=== PATIENT | female | born 1995 | race Caucasian/White ===

== ENCOUNTER 2016-12-06 15:30 | Inpatient (IN) ==
--- NOTE | 2016-12-06 17:19 | PROVIDER DOCUMENTATION ---
HPI-Musculoskeletal Pain/Inj - GENERAL Chief Complaint: Rib Pain Stated Complaint: SENT BY [facility]/POSS COLLAPSED LUNG Time Seen by Provider: 12/06/16 17:14 Source: patient - HX OF PRESENT ILLNESS-MUSKULOSKELTAL Nature of Presenting Problem: 21 y/o F c/o L axillary pain, SOB x 1 day. Pt states was seen by [facility] today and given Abx for bronchitis and sent home. States that she had been home for several hours when he called her back and asked her to be evaluated by the ED for PTX in L lung. States that she was at work yesterday when she took a break to get something out of her car when she started to have pain in L axillary region. Denies any trauma. States pain 10/10, radiates to posterior L ribs. Reports that she couldn't breathe. Review of Systems - Adult - REVIEW OF SYSTEMS - ADULT Constitutional: reports: no symptoms reported. denies: chills, fever Eyes: reports: no symptoms reported. denies: blurred vision, double vision Ears, Nose, Mouth & Throat: reports: see HPI. denies: ear pain, nose pain Cardiovascular: reports: see HPI, chest pain. denies: palpitations Respiratory: reports: see HPI, shortness of breath. denies: cough, wheezing Gastrointestinal: reports: no symptoms reported. denies: abdominal pain, nausea , vomiting Genitourinary: reports: no symptoms reported. denies: dysuria, frequency Musculoskeletal: reports: see HPI, joint pain. denies: back pain, neck pain Integumentary: reports: no symptoms reported. denies: nail changes, rash Neurological: reports: no symptoms reported. denies: numbness, paresthesia Psychiatric: reports: no symptoms reported Endocrine: reports: no symptoms reported. denies: cold intolerance, heat intolerance Hematologic/Lymphatic: reports: no symptoms reported. denies: easy bruising, prolonged bleeding Allergic/Immunologic: reports: no symptoms reported All Other Systems: Reviewed and Negative Past History - Adult - PAST MEDICAL HISTORY-ADULT Review of Records: reports: Nursing Assessment Review, Medications Reviewed Major Childhood Illnesses: reports: denies history Cardiovascular: reports: denies history Respiratory: reports: denies history Gastrointestinal: reports: denies history Obstetrical/Gynecological: reports: ovarian cysts Genitourinary: reports: denies history Musculoskeletal: reports: denies history Neurological: reports: denies history Psychiatric: reports: other (ADD) Endocrine/Immune: reports: anemia Other Conditions: reports: denies history - PRIOR SURGERIES/PROCEDURES Surgical/Procedure History: reports: other (wisdom teeth) - PRIOR HOSPITALIZATIONS Prior Hospitalizations: reports: none - IMMUNIZATION STATUS Childhood Immunizations: See Nurse Assessment Flu Vaccine: See Nurse Assessment - FAMILY HISTORY Family History: reviewed, not pertinent - SOCIAL HISTORY Smoking: cigarettes, less than 1 pack/day Provider spent 3-5 mins advising pt. on dangers of tobacco.: Discussed manners to quit use, and f/u contacts for add'l counseling. Alcohol Use Frequency: never Physical Exam-Injury Related - Physical Exam-Injury Related Initial Vital Signs Reviewed: Yes General Appearance: alert, mild distress Eyes: pink conjunctivae Head, Ears, Nose, Mouth & Throat: normocephalic/atraumatic, moist mucous membranes Neck: supple, normal inspection Respiratory: lungs clear, decreased breath sounds (L sided), rib tenderness (L axillary). negative: chest non-tender, crackles, rales, rhonchi, stridor Cardiovascular: regular rate, rhythm. negative: bradycardia, tachycardia Back Exam: normal inspection Extremity: normal gait Integumentary: normal color, warm/dry, blanching Neurologic: negative: aphasia Psych/Mental Status: normal mood/affect, normal thought content, normal thought process, oriented x 3 Progress - PLAN OF CARE/RESULTS Progress/Plan/Lab Results: Laboratory Tests 12/06/16 12/06/16 12/06/16 19:24 19:24 19:24 WBC 7.32 RBC 3.90 L Hgb 11.8 L Hct 35.4 L MCV 90.8 MCH 30.3 MCHC 33.3 RDW Std Deviation 14.1 Plt Count 351 MPV 8.5 Immature Gran % (Auto) 0.3 Neut % (Auto) 59.2 Lymph % (Auto) 31.3 Morgan % (Auto) 8.2 Eos % (Auto) 0.7 Baso % (Auto) 0.3 Immature Gran # (Auto) 0.02 Neut # (Auto) 4.34 Lymph # (Auto) 2.29 Morgan # (Auto) 0.60 H Eos # (Auto) 0.05 Baso # (Auto) 0.02 PT 10.2 INR 1.00 PTT (Actin FS) 26.5 Sodium 139 Potassium 3.7 Chloride 101 Carbon Dioxide 25 Anion Gap 13 BUN 9 Creatinine 0.6 Estimated GFR/1.73 m2 > 60 BUN/Creatinine Ratio 15 Glucose 60 L Calculated Osmolality 274 Calcium 9.4 Total Bilirubin 0.22 AST 12 ALT 7 L Alkaline Phosphatase 34 Total Protein 7.1 Albumin 3.9 Globulin 3.2 Albumin/Globulin Ratio 1.2 Urine Source Urine Color Urine Turbidity Urine pH Ur Specific [place] Urine Protein Ur Glucose (Stick) Ur Ketones (Stick) Urine Blood Urine Nitrite Urine Bilirubin Urobilinogen Dipstick Urine Leukocytes Urine WBC (Auto) Urine RBC (Auto) U Epithel Cells (Auto) Urine Bacteria (Auto) 12/06/16 19:24 WBC RBC Hgb Hct MCV MCH MCHC RDW Std Deviation Plt Count MPV Immature Gran % (Auto) Neut % (Auto) Lymph % (Auto) Morgan % (Auto) Eos % (Auto) Baso % (Auto) Immature Gran # (Auto) Neut # (Auto) Lymph # (Auto) Morgan # (Auto) Eos # (Auto) Baso # (Auto) PT INR PTT (Actin FS) Sodium Potassium Chloride Carbon Dioxide Anion Gap BUN Creatinine Estimated GFR/1.73 m2 BUN/Creatinine Ratio Glucose Calculated Osmolality Calcium Total Bilirubin AST ALT Alkaline Phosphatase Total Protein Albumin Globulin Albumin/Globulin Ratio Urine Source CLEAN CATCH Urine Color YELLOW Urine Turbidity HAZY Urine pH 7.0 Ur Specific [place] 1.010 Urine Protein NEGATIVE Ur Glucose (Stick) NEGATIVE Ur Ketones (Stick) NEGATIVE Urine Blood NEGATIVE Urine Nitrite NEGATIVE Urine Bilirubin NEGATIVE Urobilinogen Dipstick NORMAL Urine Leukocytes SMALL A Urine WBC (Auto) <10 Urine RBC (Auto) <10 U Epithel Cells (Auto) >10 A Urine Bacteria (Auto) 2+ Orders Category Date Time Status ED: Urine Bedside ORDERED Care 12/06/16 15:56 Active Oxygen Therapy- ED Nursing DIRECTED Care 12/06/16 21:13 Active Saline Loc NOW Care 12/06/16 19:14 Active NPO Diet 12/06/16 19:14 Active CHEST-2 VIEWS [RAD] Stat Exams 12/06/16 15:[address] THORAX W/O CONTRAST [CT] Stat Exams 12/06/16 19:15 Taken CBC WITH ELECTRONIC DIFF [HEME] Stat Lab 12/06/16 19:24 Completed COMPREHENSIVE METABOLIC PANEL [CHEM] Stat Lab 12/06/16 19:24 Completed PROTIME WITH INR [COAG] Stat Lab 12/06/16 19:24 Completed PTT [COAG] Stat Lab 12/06/16 19:24 Completed URINALYSIS W/POSS RFLX CULT [URINALYSIS] Stat Lab 12/06/16 19:24 Completed URINE CULTURE [RM] Routine Lab 12/06/16 19:54 Received Vital Signs Temp Pulse Resp BP Pulse Ox 12/06/16 20:40 98.5 F 75 20 119/76 100 12/06/16 15:53 98.6 F 90 20 125/78 96 No Known Allergies Allergy (Verified 12/06/16 18:04) Hydrocodone/APAP 10 mg/325 mg [[place]-10] 1 each PO Q4H PRN PRN #10 tablet Amphetamine Salts [Adderall] 10 mg PO PRN PRN 05/22/15 Lisdexamfetamine Dimesylate [Vyvanse] 40 mg PO DAILY 05/22/15 Dietary Diet NPO Start Sat Dec 06 1913 I&O 12/05/16 12/06/16 12/07/16 06:59 06:59 07:59 Output Total 50 Balance -50 Laboratory 12/06/16 12/06/16 12/06/16 19:24 19:24 19:24 WBC RBC Hgb Hct MCV MCH MCHC RDW Std Deviation Plt Count MPV Immature Gran % (Auto) Neut % (Auto) Lymph % (Auto) Morgan % (Auto) Eos % (Auto) Baso % (Auto) Immature Gran # (Auto) Neut # (Auto) Lymph # (Auto) Morgan # (Auto) Eos # (Auto) Baso # (Auto) PT 10.2 INR 1.00 PTT (Actin FS) 26.5 Sodium 139 Potassium 3.7 Chloride 101 Carbon Dioxide 25 Anion Gap 13 BUN 9 Creatinine 0.6 Estimated GFR/1.73 m2 > 60 BUN/Creatinine Ratio 15 Glucose 60 L Calculated Osmolality 274 Calcium 9.4 Total Bilirubin 0.22 AST 12 ALT 7 L Alkaline Phosphatase 34 Total Protein 7.1 Albumin 3.9 Globulin 3.2 Albumin/Globulin Ratio 1.2 Urine Source CLEAN CATCH Urine Color YELLOW Urine Turbidity HAZY Urine pH 7.0 Ur Specific [place] 1.010 Urine Protein NEGATIVE Ur Glucose (Stick) NEGATIVE Ur Ketones (Stick) NEGATIVE Urine Blood NEGATIVE Urine Nitrite NEGATIVE Urine Bilirubin NEGATIVE Urobilinogen Dipstick NORMAL Urine Leukocytes SMALL A Urine WBC (Auto) <10 Urine RBC (Auto) <10 U Epithel Cells (Auto) >10 A Urine Bacteria (Auto) 2+ 12/06/16 19:24 WBC 7.32 RBC 3.90 L Hgb 11.8 L Hct 35.4 L MCV 90.8 MCH 30.3 MCHC 33.3 RDW Std Deviation 14.1 Plt Count 351 MPV 8.5 Immature Gran % (Auto) 0.3 Neut % (Auto) 59.2 Lymph % (Auto) 31.3 Morgan % (Auto) 8.2 Eos % (Auto) 0.7 Baso % (Auto) 0.3 Immature Gran # (Auto) 0.02 Neut # (Auto) 4.34 Lymph # (Auto) 2.29 Morgan # (Auto) 0.60 H Eos # (Auto) 0.05 Baso # (Auto) 0.02 PT INR PTT (Actin FS) Sodium Potassium Chloride Carbon Dioxide Anion Gap BUN Creatinine Estimated GFR/1.73 m2 BUN/Creatinine Ratio Glucose Calculated Osmolality Calcium Total Bilirubin AST ALT Alkaline Phosphatase Total Protein Albumin Globulin Albumin/Globulin Ratio Urine Source Urine Color Urine Turbidity Urine pH Ur Specific [place] Urine Protein Ur Glucose (Stick) Ur Ketones (Stick) Urine Blood Urine Nitrite Urine Bilirubin Urobilinogen Dipstick Urine Leukocytes Urine WBC (Auto) Urine RBC (Auto) U Epithel Cells (Auto) Urine Bacteria (Auto) Discussed Xray results with Dr. Paez; states pt needs CT and call surgeon with results. - XRAY 1 XRAY Study: Chest XRAY Interpretation: L simple pneumothorax, approx. 10-15% - CT/MRI 1 CT Study: Thorax Impression: See EMR Report (About 20% pneumothorax on left; mild emphysema at right upper lobe -per Dr. Ball) - CONSULTS/PCP/HOSPITALIST Notification #1 *Consult/PCP/Hospitalist*: Dr. Iqbal Time Discussed: 20:40 Reason/Comments: L PTX about 20%, per CT scan Consult Disposition: Will see in ED, Admit (after evaluation, recommended admission to CIC or ICU if not available. NRB mask. Admit to Dr. Iqbal) Departure - Departure Time of Disposition Order: 21:13 DIAGNOSIS: Pneumothorax on left Emphysema of lung Qualifiers: Emphysema type: unspecified Qualified Code(s): J43.9 - Emphysema, unspecified Disposition: ADMITTED INPATIENT 09 Certified Medical Emergency: Emergent Condition: Stable Referrals: ANJU MASON [Primary Care Provider] - Attestation - Physician/ RAIN Attestation Patient care was provided by Advanced Practice Provider:: Yes Advanced Practice Provider:: Jennifer Platt Advanced Practice Provider documentation review:: The Mid-level provider documentation, treatment plan and medical decision making was reviewed by the physician who agrees with all treatment and medical decision making by the MLP.
[2016-12-06 19:39] LABS: MANUAL DIFF NEEDED? NO; URINE MICRO REVIEW NEEDED? NO; URINE SOURCE CLEAN CATCH
--- NOTE | 2016-12-06 19:44 | Diag Imaging Result Document ---
PROCEDURE NAME: CHEST-2 VIEWS - 12/06/2016 FRONTAL AND LATERAL CHEST, 2 VIEWS: COMPARISON: Compared to 06/03/2015. There is a left-sided pneumothorax measuring 3.4 cm superiorly in the midline. The right lung is well expanded and clear. There are no infiltrates. No pleural effusions. The heart is not enlarged. The vessels are not distended. IMPRESSION: Small to moderate sized left-sided pneumothorax. A preliminary report was called and given to Dr. Paez in the Emergency Room at 7:22 p.m.
[2016-12-06 19:50] LABS: BASO% 0.3 % (0.0-0.8); EOS# 0.05 X1000 (0.0-0.7); EOS% 0.7 % (0.0-10.0); HEMATOCRIT 35.4 % (37.0-47.0); HEMOGLOBIN 11.8 g/dL (12.0-16.0); IMM GRAN# 0.02 X1000 (0.0-0.04); IMM GRAN% 0.3 % (0.0-0.5); LYMPH# 2.29 X1000 (1.2-3.4); LYMPH% 31.3 % (20.5-51.1); MCH 30.3 PG (27-31); MCHC 33.3 g/dL (33-37); MCV 90.8 FL (81-99); MONO% 8.2 % (1.7-9.3); MPV 8.5 FL (7.4-10.4); NEUT% 59.2 % (42.2-75.2); PLT 351 X1000 (130-400)
[2016-12-06 19:51] LABS: BILIRUBIN URINE NEGATIVE (NEGATIVE); BLOOD URINE NEGATIVE (NEGATIVE); COLOR YELLOW; GLUCOSE URINE NEGATIVE (NEGATIVE); LEUKOCYTES URINE SMALL (NEGATIVE); NITRITE URINE NEGATIVE (NEGATIVE); PROTEIN URINE NEGATIVE (NEGATIVE); TURBIDITY URINE HAZY (CLEAR); UROBILINOGEN URINE NORMAL (NORMAL)
[2016-12-06 19:53] LABS: UR EPITHELIAL CELLS >10 /HPF (<10); URINE BACTERIA 2+ /HPF; URINE CULTURE NEEDED? YES; URINE RBC <10 /HPF (<10); URINE WBC <10 /HPF (<10)
[2016-12-06 19:57] LABS: AGAP 13; ALBUMIN 3.9 g/dL (3.5-5.0); ALKALINE PHOSPHATASE 34 U/L (32-104); BUN 9 mg/dL (8-22); CALCIUM 9.4 mg/dL (8.8-10.2); CHLORIDE 101 mmol/L (98-107); COSMO 274; GOT 12 U/L (10-30); GPT 7 U/L (10-36); POTASSIUM 3.7 mmol/L (3.5-5.1); SODIUM 139 mmol/L (136-145); TCO2 25 mmol/L (25-35); TOTAL BILIRUBIN 0.22 mg/dL (0.20-1.00); TOTAL PROTEIN 7.1 g/dL (6.3-8.3)
[2016-12-06 20:01] LABS: PROTIME 10.2 Seconds (9.2-11.7); PTT 26.5 Seconds (22.0-36.0)
[2016-12-06] MEDS: ZOFRAN IV PRN (21:50)
[2016-12-06] MEDS: NS 1,000 ML IV SCH (21:50)
--- NOTE | 2016-12-06 21:55 | Diag Imaging Result Document ---
PROCEDURE NAME: CT THORAX W/O CONTRAST - 12/06/2016 CT CHEST WITHOUT CONTRAST: TECHNIQUE: Dose reduction protocol. FINDINGS: There is a small left-sided pneumothorax. This measures 2.3 cm anteriorly in the midline. No right-sided pneumothorax. Minimal emphysematous changes. No consolidation. No bronchiectasis. No pleural effusions. No cardiomegaly. No thoracic aortic aneurysm. No enlarged mediastinal or hilar lymph nodes. IMPRESSION: 1. Small left pneumothorax. 2. Minimal early emphysematous changes. A preliminary report was given at 7:57 p.m. Results of the pneumothorax from the plain film were given to Dr. Paez at 7:22 p.m. MTDD
[2016-12-06] MEDS ORDERED: ADDERALL PO PRN (22:45)
[2016-12-06] MEDS: NORCO-7.5 PO PRN (23:08)
--- NOTE | 2016-12-07 03:37 | HISTORY AND PHYSICAL ---
DATE OF ADMISSION: 12/06/2016 HISTORY OF PRESENT ILLNESS: This is a 21-year-old female who, starting yesterday when reaching in her car, developed some pleuritic-type left chest pain. She went to urgent care earlier today, was diagnosed to have bronchitis but on the formal read of her chest x-ray, there were concerns of some pneumothorax and she was referred to the emergency department where a CT scan was obtained that confirmed pneumothorax. CT scan was also obtained that showed a left-sided pneumothorax. She has been hemodynamically stable. No shortness of breath and her pain has resolved for the most part at this point. PAST MEDICAL HISTORY: She has some depression, ADHD, and a history of abnormal vaginal bleeding. SURGICAL HISTORY: [place] teeth. SOCIAL HISTORY: Half pack-a-day smoker. She does smoke marijuana regularly. Denies alcohol or other illicit drugs. FAMILY HISTORY: Extensive for lung cancer, emphysema, coronary disease, and many others. REVIEW OF SYSTEMS: Ten point negative other than what is mentioned in her HPI. PHYSICAL EXAMINATION: Vital Signs: Temperature is 98.5, pulse 75, blood pressure 119/76, oxygen saturation 100% on room air. General: She is alert, in no acute distress. HEENT: There is no scleral icterus. Cardiovascular: Normal rate, regular rhythm. Pulmonary: There is equal chest rise. There is no increased work of breathing. Normal tidal volumes. There is no subcutaneous air noted along her chest or neck. Abdomen: Soft, nontender, nondistended. Integument: Warm, dry. LABS: Reviewed. White count is normal at 7, hematocrit is 35. INR is 1. Renal function, LFTs, and electrolyte panel are normal. Urinalysis does show some small leukocytes but no nitrites. A CT scan shows approximately a 20% left pneumothorax. There is no mediastinal shift. There are some apical blebs that are small, noted bilaterally. I do not see any subcutaneous air. ASSESSMENT/PLAN: A 21-year-old female with a spontaneous pneumothorax. This is her first episode. She is asymptomatic currently. It is right on the cusp of needing a chest tube this evening. However, she remains completely asymptomatic. We will admit her to a monitored bed, either intensive care unit or a step-down unit. Placed her on continuous nonrebreather supplemental oxygen to help facilitate resolution. Follow serial chest x-rays. I did discuss with the patient that if this is not improved or resolving by in the morning, she will need likely to go to the operating room; if not, have a bedside chest tube placed. As this is the first episode, we will treat initially with chest tube management. I did encourage her to stop all forms of smoking. She understands the role that this plays in spontaneous pneumothorax. We will have a low threshold to place a bedside chest tube if her clinical condition deteriorates or should she become worsening symptomatic. We will continue to follow closely.
[2016-12-07] MEDS: NS 1,000 ML IV SCH ×4 (06:03→20:17)
--- NOTE | 2016-12-07 07:51 | Diag Imaging Result Document ---
PROCEDURE NAME: CHEST-PORTABLE - 12/07/2016 PORTABLE CHEST: COMPARISON: Compared to 12/06/2016. FINDINGS: There is a small left apical pneumothorax. This is unchanged from the prior exam. The right lung remains well expanded. There are no infiltrates. No cardiomegaly. No vascular distension. No pleural effusions identified. IMPRESSION: Stable small left pneumothorax.
[2016-12-07] MEDS ORDERED: VYVANSE PO SCH (09:00)
[2016-12-07] MEDS ORDERED: KEFZOL 1 GM/D5W 50 ML ONE (09:23)
[2016-12-07] MEDS ORDERED: XYLOCAINE 1% ONE (09:23)
[2016-12-07] MEDS ORDERED: MARCAINE 0.25% PF/EPI 1:200,000 ONE (09:23)
[2016-12-07] MEDS ORDERED: DEMEROL ONE (10:12)
[2016-12-07] MEDS: DEMEROL ONE ×2 (10:14→10:19)
[2016-12-07] MEDS ORDERED: DIPRIVAN 1% ONE (10:14)
[2016-12-07] MEDS ORDERED: PHENERGAN ONE (10:23)
--- NOTE | 2016-12-07 10:59 | Diag Imaging Result Document ---
PROCEDURE NAME: CHEST-PORTABLE - 12/07/2016 PORTABLE CHEST: COMPARISON: Compared to study performed earlier. FINDINGS: Interval placement of a left-sided chest tube. The tip overlies the left lung apex. Interval decrease in the size of the left pneumothorax. The right lung remains well expanded and clear. IMPRESSION: Interval placement of a left-sided chest tube with decrease in the size of the left pneumothorax
[2016-12-07] MEDS: NORCO-7.5 PO PRN ×2 (12:11→20:28)
--- NOTE | 2016-12-07 13:53 | PROGRESS NOTE ---
DATE: 12/07/2016 SUBJECTIVE: No events overnight. No pain. No shortness of breath. OBJECTIVE: Vital signs: She is afebrile. No tachycardia. General: She is alert, in no acute distress. Non-rebreather mask is on. Cardiovascular: Normal rate. Regular rhythm. Pulmonary: No increased work of breathing. No subcu air. Abdomen: Soft, nontender. Integument: Warm and dry. DIAGNOSTIC STUDIES: I have reviewed her chest x-ray this morning and shows a persistent left- sided pneumothorax with no improvement. ASSESSMENT AND PLAN: This is a 21-year-old female with a spontaneous left pneumothorax. No improvement with nonoperative management. She is asymptomatic for the most part, but I have had a discussion with her and I do not think this pneumothorax will resolve without thoracostomy tube. Risks, benefits, and alternatives were discussed and she consents to the procedure. We will plan to go today to the operating room for video-assisted left chest tube placement and will manage this per the usual protocol postop.
--- NOTE | 2016-12-07 14:09 | OPERATIVE NOTE ---
PROCEDURE DATE : 12/07/2016 PREOPERATIVE DIAGNOSIS: Left spontaneous pneumothorax. POSTOPERATIVE DIAGNOSIS: Left spontaneous pneumothorax. PROCEDURES PERFORMED: 1. Thoracoscopy. 2. Placement of a 24-Tristanian left chest tube. COMPLICATIONS: None. ESTIMATED BLOOD LOSS: 2 mL. SPECIMENS: None. ANESTHESIA: General. OPERATIVE INDICATION: This 21-year-old female presented to the emergency department with chest pain and was found to have a spontaneous pneumothorax. We monitored this overnight on nonrebreather oxygen, did not improve and persisted this morning. She was asymptomatic. Chest tube was placed, indicated to facilitate resolution of pneumothorax. OPERATIVE FINDINGS: There were some atelectatic changes of the lung. There was no evidence of air leak. No other abnormalities within the chest. No other physiology. DESCRIPTION OF PROCEDURE: The risks, benefits and alternatives were discussed with the patient. She consented for the procedure. She was taken in the operating room and placed in the supine position. General anesthesia was induced. Surgical site was confirmed. Her left chest was prepped. She was placed in modified right lateral decubitus on a beanbag with just a slight bump here. After the chest was prepped and preincisional antibiotics were administered, she was draped in the usual fashion. We counted the ribs. The patient is very thin, and this was easy to do. At approximately the 7th intercostal space, we made a transverse incision. I used electrocautery and blunt dissection to carry this down to the level of the rib. We entered the chest cavity above the level of the diaphragm. We placed a trocar in an open Abrahan technique and inspected the left hemithorax with a camera with the above findings. After this, we selected a 24-Tristanian straight chest tube and advanced this apically in slight anterior orientation. We placed the scope alongside this and confirmed that this did course into the expected location. We secured it with 0 silk sutures, placed it to suction with the Pleur-evac device and applied a sterile dressing. She tolerated the procedure well. There was no identified complication. She was awakened, transferred to the PACU in good condition where we obtained a chest x-ray. I spoke to the family.
[2016-12-08] MEDS: NS 1,000 ML IV SCH (03:50)
[2016-12-08] MEDS ORDERED: ROBINUL ONE (07:19)
[2016-12-08] MEDS ORDERED: NEOSTIGMINE ONE (07:19)
[2016-12-08] MEDS ORDERED: ZOFRAN ONE (07:19)
[2016-12-08] MEDS ORDERED: XYLOCAINE-MPF 2% ONE (07:20)
[2016-12-08] MEDS ORDERED: ZEMURON ONE (07:20)
[2016-12-08] MEDS ORDERED: LR 1,000 ML ONE (07:20)
[2016-12-08] MEDS ORDERED: QUELICIN (DOSE) ONE (07:20)
[2016-12-08] MEDS ORDERED: DECADRON ONE (07:20)
[2016-12-08] MEDS ORDERED: EXTENSION SET 32 IN 4522 ONE (07:20)
[2016-12-08] MEDS ORDERED: ANESTHESIA PB SET 88 IN 5742 ONE (07:20)
--- NOTE | 2016-12-08 08:08 | Diag Imaging Result Document ---
PROCEDURE NAME: CHEST-PORTABLE - 12/08/2016 PORTABLE CHEST X-RAY, 12/08/2016: COMPARISON: 12/07/2016. FINDINGS: Stable left chest tube. There is no pneumothorax. The lungs are clear and the heart size is normal. IMPRESSION: No acute disease or complication.
[2016-12-08] MEDS: NON-FORMULARY MED PO SCH (08:52)
[2016-12-08] MEDS: NORCO-7.5 PO PRN ×3 (09:03→22:02)
--- NOTE | 2016-12-08 12:00 | PROGRESS NOTE ---
DATE: 12/08/2016 SUBJECTIVE: A little bit of discomfort at the tube site but otherwise no new respiratory symptoms. OBJECTIVE: Vital signs: She is afebrile. No tachycardia. Oxygen saturation has been fine on room air. Chest: No subcu air. No air leak in her chest tube. Only a scant amount of fluid out. LABS: No new labs this morning. Chest x-ray shows complete resolution of her pneumothorax. ASSESSMENT AND PLAN: This is a 21-year-old female status post left chest tube placement for spontaneous pneumothorax. The pneumothorax has resolved. There is no air leak. We plan to place the tube to water seal today, repeat a chest x-ray, and possibly remove the tube tomorrow.
--- NOTE | 2016-12-08 16:04 | Diag Imaging Result Document ---
PROCEDURE NAME: CHEST-PORTABLE - 12/08/2016 PORTABLE CHEST X-RAY: TIME: 11:36 hours. COMPARISON: 0600 hours. FINDINGS: There is a stable left apical chest tube. No pneumothorax. The lungs are clear and the heart size is normal. IMPRESSION: No acute disease or complication.
[2016-12-08] MEDS ORDERED: AYR NASAL SPRAY NAS ONE (18:06)
[2016-12-08] MEDS: ZOFRAN IV PRN (22:02)
[2016-12-09] MEDS: NORCO-7.5 PO PRN ×2 (06:43→13:14)
--- NOTE | 2016-12-09 08:15 | Diag Imaging Result Document ---
PROCEDURE NAME: CHEST-PORTABLE - 12/09/2016 SINGLE FRONTAL RADIOGRAPH OF THE CHEST: COMPARISON: 12/08/2016. FINDINGS: The left chest tube is in stable position with the tip projecting near the apex of the left lung. No definite residual pneumothorax can be identified on this plain radiograph. The lungs are clear otherwise. There is no pleural fluid collection identified. Cardiac silhouette is stable. IMPRESSION: Stable left chest tube with no definite residual pneumothorax by plain radiograph.
[2016-12-09] MEDS: NON-FORMULARY MED PO SCH (09:10)
--- NOTE | 2016-12-09 11:12 | PROGRESS NOTE ---
DATE: 12/09/2016 SUBJECTIVE: Feels well. Some discomfort with her tube, slight, but no shortness of breath. OBJECTIVE: Vital signs: Stable. Oxygen saturation 100% on room air. General: She is alert, in no acute distress. There is no air leak in her chest tube. There is minimal output. However, chest x-ray this morning showed no residual pneumothorax. ASSESSMENT AND PLAN: A 21-year-old female status post left chest tube placement for spontaneous pneumothorax. This has resolved. There is no air leak. She tolerated water seal yesterday. Removed the tube today and placed an occlusive dressing and she tolerated this well. I will get a chest x-ray at noon. If this looks okay, I will plan for her to go home. Will then plan for her to follow with me in the next week to ensure no symptoms and resolution.
[2016-12-09 13:46] VITALS: BP 117/71
--- NOTE | 2016-12-09 13:48 | Diag Imaging Result Document ---
PROCEDURE NAME: CHEST-PORTABLE - 12/09/2016 SINGLE FRONTAL RADIOGRAPH OF THE CHEST: COMPARISON: 12/09/2016. FINDINGS: The lungs are grossly clear. There is no discrete pleural fluid collection or evidence of pneumothorax. The cardiomediastinal silhouette and upper airway are grossly unremarkable. IMPRESSION: No evidence of acute chest pathology.
== END 2016-12-09 16:38 | disposition home or self-care (01) | DRG 168 ==
LOC: ED 15:30 → 3S 15:31
PROVIDERS: ADMIT Surgery; ATTEND Surgery
PROC: 0W9B40Z Drainage of Left Pleural Cavity with Drainage Device, Percutaneous Endoscopic Approach (ICD-10-PCS; principal; 2016-12-07 09:17)
DX: J93.83 Other pneumothorax (principal); F17.210 Nicotine dependence, cigarettes, uncomplicated; Z80.1 Family history of malignant neoplasm of trachea, bronchus and lung; Z82.49 Family history of ischemic heart disease and other diseases of the circulatory system; F90.9 Attention-deficit hyperactivity disorder, unspecified type; Z79.899 Other long term (current) drug therapy
CPT/HCPCS: 36415; 71010; 71020; 71250; 80053; 81001; 81025; 85025; 85610; 85730; 87088; 96374; J0330; J0690; J1100; J2175; J2405; J2550; J7030; J7120; J2710